=== PATIENT | female | born 1965 | race Caucasian/White ===

== ENCOUNTER 2020-08-23 09:54 | Outpatient (NON) | payer BC, SELFPAY ==
[2020-08-24 01:49] LABS: SARS-CoV-2 RNA PCR Positive
== END 2020-08-23 09:55 ==
LOC: ANHCOVIDDT 09:55
PROVIDERS: PCP Family Medicine; Visit Provider Family Medicine
DX: U07.1 COVID-19 (principal)
CPT/HCPCS: 87635; C9803; U0003